=== PATIENT | male | born 1980 | race Caucasian/White ===

== ENCOUNTER 2019-05-07 13:56 | Emergency (ER) | payer SELFPAY ==
[~2019-05-07] VITALS: Ht 182.9 cm; Wt 120.0 kg
[2019-05-07 14:00] VITALS: BP 164/87
[2019-05-07] MEDS ORDERED: NAPROXEN 500 MG TABLET PO ONE (14:45)
[2019-05-07] MEDS ORDERED: CYCLOBENZAPRINE 10 MG TABLET. PO ONE (14:45)
[2019-05-07] MEDS ORDERED: PRED50TA PO (14:45)
[2019-05-07] MEDS ORDERED: CYCL-331 PO (14:45)
--- NOTE | 2019-05-07 14:45 | PHYS DOC ---
Adult General Chief Complaint Chief Complaint: MECHANICAL FALL HPI HPI 39-year-old male presents with low back pain. The patient was walking out of his shower and slipped on the ice and fell onto his buttocks, wrenching his lower back. He now has pain at the top of the buttocks on both sides. He states it is very tender. He denies numbness or altered sensation. He is able to walk, but is uncomfortable. He also hit his right elbow on the ground. He feels like there is a nondrinker this different than the other side. It is uncomfortable to fully extend it. Review of Systems Review of Systems Constitutional: Denies fever or chills [] Eyes: Denies change in visual acuity, redness, or eye pain [] HENT: Denies nasal congestion or sore throat [] Respiratory: Denies cough or shortness of breath [] Cardiovascular: No additional information not addressed in HPI [] GI: Denies abdominal pain, nausea, vomiting, bloody stools or diarrhea [] : Denies dysuria or hematuria [] Musculoskeletal: Denies back pain or joint pain [] Integument: Denies rash or skin lesions [] Neurologic: Denies headache, focal weakness or sensory changes [] Endocrine: Denies polyuria or polydipsia [] All other systems were reviewed and found to be within normal limits, except as documented in this note. Physical Exam Physical Exam Constitutional: Well developed, well nourished, no acute distress, non-toxic appearance. [] HENT: Normocephalic, atraumatic, bilateral external ears normal, oropharynx moist, no oral exudates, nose normal. [] Eyes: PERRLA, EOMI, conjunctiva normal, no discharge. [] Neck: Normal range of motion, no tenderness, supple, no stridor. [] Cardiovascular:Heart rate regular rhythm, no murmur [] Lungs & Thorax: Bilateral breath sounds clear to auscultation [] Abdomen: Bowel sounds normal, soft, no tenderness, no masses, no pulsatile masses. [] Skin: Warm, dry, no erythema, no rash. [] Back: No tenderness, no CVA tenderness. [] Extremities: No tenderness, no cyanosis, no clubbing, ROM intact, no edema. [] Neurologic: Alert and oriented X 3, normal motor function, normal sensory function, no focal deficits noted. [] Psychologic: Affect normal, judgement normal, mood normal. [] EKG EKG [] Radiology/Procedures Radiology/Procedures [] Impressions: PROCEDURE: ELBOW RIGHT 3V STUDY DATE: 05/07/2019 CLINICAL INDICATION / HISTORY: Right elbow pain after a fall. TECHNIQUE: 3 views of the right elbow were obtained. COMPARISON: None FINDINGS: 3 views of the right elbow demonstrate no evidence of fracture, subluxation, or dislocation. Soft tissues unremarkable. IMPRESSION: No acute osseous abnormality. Electronically signed by: Jordy Kenny MD (05/07/2019 2:57 PM) [id number] DICTATED AND SIGNED BY: JORDY KENNY MD DATE: 05/07/19 9104 CC: BROOKE MENDEZ DO; ОЛЬГА BANEGAS DO ~ 3 views lumbar spine dated 05/07/2019. Comparison made to 06/20/2015. CLINICAL INDICATION: Pain after fall. FINDINGS: 3 views lumbar spine show slight retrolisthesis of L5 on S1, similar to prior study. Sagittal alignment is otherwise anatomic. Vertebral body heights are maintained. Mild endplate hypertrophic changes throughout. There is mild disc space narrowing at L5-S1 with mild to moderate arthrosis lower lumbar apophyseal joints. IMPRESSION: 1. No acute radiographic abnormality. 2. Mild lower lumbar spondylosis. Electronically signed by: Khari Trevino MD (05/07/2019 2:56 PM) [id number] DICTATED AND SIGNED BY: KHARI TREVINO MD DATE: 05/07/19 9905 CC: BROOKE MENDEZ DO; ОЛЬГА BANEGAS DO ~ Course & Med Decision Making Course & Med Decision Making Pertinent Labs and Imaging studies reviewed. (See chart for details) The patient has denied being on any medications to me. I asked if he has had any recent medication changes, including starting or stopping her medication. He said no. This is interesting because according to the [place] drug tricking data base is has steady supply of hydrocodone and acetaminophen 7.5/325, 120 of them a month for the last 3 months. He should be due for a refill today. I have ordered naproxen and Flexeril for his pain. We will x-ray his lumbar spine and right elbow. The patient's x-rays are negative for fracture. He does have some spondylolysis of the lumbar spine. I will discharge the patient on Flexeril and 4 days of prednisone 50 mg. He already has pain medication access. He is stable for discharge at this time. [] Dragon Disclaimer Dragon Disclaimer This electronic medical record was generated, in whole or in part, using a voice recognition dictation system. Departure Departure: Impression: Primary Impression: Sacroiliac joint pain Additional Impression: Fall due to ice or snow Disposition: HOME, SELF-CARE Condition: STABLE Referrals: BROOKE MENDEZ DO (PCP) Patient Instructions: Sacroiliac Joint Dysfunction Scripts Prednisone (PREDNISONE) 50 Mg Tablet 1 TAB PO DAILY for sacroiliac pain for 4 Days, #4 TAB Prov: ОЛЬГА BANEGAS DO 05/07/19 Cyclobenzaprine Hcl (CYCLOBENZAPRINE HCL) 10 Mg Tablet 1 TAB PO TID for sacroiliac back pain, #30 TAB Prov: ОЛЬГА BANEGAS DO 05/07/19 Problem Qualifiers Additional Impression: Fall due to ice or snow Encounter type: initial encounter Qualified Codes: W00.9XXA - Unspecified fall due to ice and snow, initial encounter ОЛЬГА BANEGAS DO May 07, 2019 14:45
--- NOTE | 2019-05-07 14:59 | RAD ---
3 views lumbar spine dated 05/07/2019. Comparison made to 06/20/2015. CLINICAL INDICATION: Pain after fall. FINDINGS: 3 views lumbar spine show slight retrolisthesis of L5 on S1, similar to prior study. Sagittal alignment is otherwise anatomic. Vertebral body heights are maintained. Mild endplate hypertrophic changes throughout. There is mild disc space narrowing at L5-S1 with mild to moderate arthrosis lower lumbar apophyseal joints. IMPRESSION: 1. No acute radiographic abnormality. 2. Mild lower lumbar spondylosis. Electronically signed by: Khari Trevino MD (05/07/2019 2:56 PM) [id number]
--- NOTE | 2019-05-07 14:59 | RAD ---
PROCEDURE: ELBOW RIGHT 3V STUDY DATE: 05/07/2019 CLINICAL INDICATION / HISTORY: Right elbow pain after a fall. TECHNIQUE: 3 views of the right elbow were obtained. COMPARISON: None FINDINGS: 3 views of the right elbow demonstrate no evidence of fracture, subluxation, or dislocation. Soft tissues unremarkable. IMPRESSION: No acute osseous abnormality. Electronically signed by: Fidel Kenny MD (05/07/2019 2:57 PM) [id number]
== END 2019-05-07 15:25 | disposition home or self-care (01) ==
LOC: ER 14:02
DX: M54.5 Low back pain (principal); M25.521 Pain in right elbow; W00.0XXA Fall on same level due to ice and snow, initial encounter; Y93.89 Activity, other specified; Y92.89 Other specified places as the place of occurrence of the external cause; Y99.8 Other external cause status
CPT/HCPCS: 72100; 73080; 99284

== ENCOUNTER 2020-07-08 09:20 | Emergency (ER) | payer OTHER ==
[~2020-07-08] VITALS: Ht 177.8 cm; Wt 100.1 kg
[2020-07-08 09:20] VITALS: BP 134/89
[~2020-07-08 09:20] MED LIST: CYCL-331 PO; PRED50TA PO
[2020-07-08] MEDS ORDERED: KETOROLAC 60 MG/2 ML VIAL. IM ONE (10:00)
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
== END 2020-07-08 10:43 | disposition home or self-care (01) ==
LOC: ER 09:20
DX: M54.6 Pain in thoracic spine (principal); M54.5 Low back pain; G89.11 Acute pain due to trauma; J45.909 Unspecified asthma, uncomplicated; V43.52XA Car driver injured in collision with other type car in traffic accident, initial encounter; Y92.488 Other paved roadways as the place of occurrence of the external cause; Y93.89 Activity, other specified; Y99.8 Other external cause status
CPT/HCPCS: 72072; 72100; 96372; 99284; J1885